=== PATIENT | female | born 1945 | race Caucasian/White ===

== ENCOUNTER → 2020-03-22 | Outpatient (CLI) | payer OTHER | END | disposition home or self-care (01) | LOC: TOM 13:16 | PROVIDERS: ATTEND Internal Medicine | DX: R10.84 Generalized abdominal pain (principal) ==

== ENCOUNTER 2023-02-28 08:47 | Outpatient (CLI) | payer OTHER | END 2023-02-28 08:52 | disposition home or self-care (01) | LOC: RX STUDY 08:47 | PROVIDERS: ATTEND Internal Medicine | DX: R13.12 Dysphagia, oropharyngeal phase (principal) ==